=== PATIENT | female | born 1945 | race Caucasian/White ===

== ENCOUNTER → 2020-12-25 | Outpatient (CLI) | payer MEDICARE, OTHER ==
[~2020-12-25] MED LIST: ADULT MULTIVIT1 EACH PO; ALPHA LIPOIC A200 M2 PO; ASPIRIN 81M81 MG/TA2 PO; CARNITINE PO; COREG 6.256.25 MG/TA PO; GLUCOSAMINE 1000; GLUCOSAMINE/CHO1 CA4 PO; JANTOVEN2.5 MG PO; JANTOVEN5 MG PO; MAGNESIUM CITR100 MG PO; MSM1000 MG; ORIGANUM OIL 1 M1 ML; PHARMASSURE ZIN50 MG PO; PROTONIX 40MG T40 MG PO; SUPER B COMPLEX; THE MEDICINE S200 M2 PO; THERATEARS SGL PO; TURMERIC500 MG PO; VITAMIN D31000 IU PO; VITAMINC1000TA PO; ZETIA 10MG TAB10 MG PO; [UNRECOGNIZED DRUG - OTHER]
[2020-12-25 12:55] LABS: BILIRUBIN,TOTAL 0.2 mg/dL (0.0-1.0); CALCIUM 9.6 mg/dL (8.4-10.2); CREATININE, serum 0.79 (0.52-1.25); POTASSIUM 4.5 mmol/L (3.4-5.0); TOTAL PROTEIN 7.7 gm/dL (6.4-8.2)
== END ==
LOC: COL.RAD 12:05 → COL.LAB 12:05 → COL.RAD 13:30
DX: N26.1 Atrophy of kidney (terminal) (principal); I25.10 Atherosclerotic heart disease of native coronary artery without angina pectoris; G93.89 Other specified disorders of brain; E27.8 Other specified disorders of adrenal gland; C79.9 Secondary malignant neoplasm of unspecified site; D32.9 Benign neoplasm of meninges, unspecified; C78.00 Secondary malignant neoplasm of unspecified lung; Z98.890 Other specified postprocedural states
CPT/HCPCS: A9585; Q9967

== ENCOUNTER → 2021-01-29 | Outpatient (CLI) | payer MEDICARE, OTHER | LOC: COL.RAD 11:30 | DX: C78.00 Secondary malignant neoplasm of unspecified lung (principal); C79.9 Secondary malignant neoplasm of unspecified site; D35.01 Benign neoplasm of right adrenal gland; N26.1 Atrophy of kidney (terminal) | CPT/HCPCS: Q9967 ==

== ENCOUNTER 2021-03-22 12:57 | Observation (INO) | payer MEDICARE, OTHER ==
[~2021-03-22] VITALS: Ht 160 cm; Wt 84.1 kg
[2021-03-22 14:12] LABS: BASO # 0.1 (0.0-0.2); BASO % 0.4 % (0.0-2.0); EOS # 0.1 (0.0-0.7); EOS % 0.7 % (0-4.0); GRAN # 14.1 (1.4-6.5); GRAN % 84.4 % (42.2-75.2); HEMATOCRIT 36.6 % (37.0-47.0); HEMOGLOBIN 11.9 g/dl (12.5-16.0); LYMPH # 1.5 (1.2-3.4); MEAN CELL VOLUME 94 fl (80.0-100.0); MEAN CORPUSCULAR HEMOGLOBIN 31 pg (27.0-31.0); MEAN CORPUSCULAR HGB CONC 33 g/dl (33.0-37.0); MEAN PLATELET VOLUME 9.4 fl (7.4-10.4); MONO # 0.8 (0.1-0.6); MONO % 4.7 % (1.7-9.3); PLATELET COUNT 169 K/mm3 (130-400); RED BLOOD COUNT 3.88 M/mm3 (4.10-5.30); REDCELL DISTRIBUTION WIDTH-CV 14.2 % (11.5-14.5)
[2021-03-22 14:22] LABS: COLLECTION METHOD CLEAN CATCH
[2021-03-22 14:23] LABS: ALBUMIN 3.4 gm/dL (3.5-5.0); BILIRUBIN,TOTAL 0.3 mg/dL (0.0-1.0); CALCIUM 8.7 mg/dL (8.4-10.2); CREATININE, serum 0.76 (0.52-1.25); PROTHROMBIN TIME 21.9 SECONDS (9.7-12.8); TOTAL PROTEIN 6.5 gm/dL (6.4-8.2)
[2021-03-22 14:29] LABS: MUCOUS Present /lpf; PH 5 (5-8); SQUAMOUS EPITHELIAL 0-2 /hpf; URINE APPEARANCE Hazy; URINE BACTERIA None Seen /hpf; URINE BILIRUBIN Negative (NEGATIVE); URINE BLOOD 1+ (NEGATIVE); URINE COLOR Yellow; URINE GLUCOSE Negative (NEGATIVE); URINE KETONE Negative (NEGATIVE); URINE LEUKOCYTE ESTERASE Negative (NEGATIVE); URINE NITRATE Negative (NEGATIVE); URINE PROTEIN(semi-quant) Negative (NEGATIVE); URINE RBC 0-2 /hpf; URINE UROBILINOGEN Negative (NEGATIVE)
[2021-03-22 14:47] LABS: C-REACTIVE PROTEIN 0.5 mg/dL (0.0-0.9)
[2021-03-22] MEDS ORDERED: VITAMINC1000TA PO (15:40)
[2021-03-22] MEDS ORDERED: MSM1000 MG (15:41)
[2021-03-22] MEDS ORDERED: GLUCOSAMINE 1000 (15:41)
[2021-03-22] MEDS ORDERED: MAGNESIUM CITR100 MG PO (15:42)
[2021-03-22] MEDS ORDERED: ADULT MULTIVIT1 EACH PO (15:42)
[2021-03-22] MEDS ORDERED: THERATEARS SGL PO (15:43)
[2021-03-22] MEDS ORDERED: GLUCOSAMINE/CHO1 CA4 PO (15:44)
[2021-03-22] MEDS ORDERED: VITAMIN D31000 IU PO (15:44)
[2021-03-22] MEDS ORDERED: ORIGANUM OIL 1 M1 ML (15:44)
[2021-03-22] MEDS ORDERED: TURMERIC500 MG PO (15:45)
[2021-03-22] MEDS ORDERED: THE MEDICINE S200 M2 PO (15:46)
[2021-03-22] MEDS ORDERED: CARNITINE PO (15:47)
[2021-03-22] MEDS ORDERED: ALPHA LIPOIC A200 M2 PO (15:48)
[2021-03-22] MEDS ORDERED: SUPER B COMPLEX (15:48)
[2021-03-22] MEDS ORDERED: [UNRECOGNIZED DRUG - OTHER] (15:49)
[2021-03-22] MEDS ORDERED: COREG 6.256.25 MG/TA PO (15:49)
[2021-03-22] MEDS ORDERED: PHARMASSURE ZIN50 MG PO (15:49)
[2021-03-22] MEDS ORDERED: ASPIRIN 81M81 MG/TA2 PO (15:50)
[2021-03-22] MEDS ORDERED: JANTOVEN5 MG PO (15:50)
[2021-03-22] MEDS ORDERED: ZETIA 10MG TAB10 MG PO (15:51)
[2021-03-22] MEDS ORDERED: JANTOVEN2.5 MG PO (17:25)
--- NOTE | 2021-03-22 19:48 | NUR ---
PATIENT ARRIVED TO UNIT AROUND 1930 PM FROM ED. PATIENT PRESENTED WITH NAUSEA/VOMITING AND IG BLEED. PATIENT ALERRT AND ORIENTED X4. DENIES PAIN, NAUSEA OR VOMITING. ABDOMENT SOFT, +BSX4 QUADRANTS. VSS, AFEBRILE. PATIENT ORIENTED TO ROOM. CALL LIGHT WITHIN REACH, BED LOW AND LOCKED. WILL CONTINUE TO MONITOR.
[2021-03-22 20:00] VITALS: BP 122/45; PULSE 87; TEMP 99.2
[2021-03-23] VITALS (10 sets, daily range): BP systolic 108–137; BP diastolic 5–65; PULSE 74–89; TEMP 97.8–99.8
--- NOTE | 2021-03-23 07:57 | NUR ---
Received call that OR would be coming to get patient for procedure. Consent signed and pt prepped for scope. Pt denies any pain and has not had any bloody stools since arriving. Pt has used the restroom and all jewelry has been removed.
--- NOTE | 2021-03-23 09:03 | NUR ---
Pt back from EGD, she is alert and oriented with no pain complaints. She is tolerating clear liquids which recovery nurse gave her. VSS. Pt is hoping to go home today
--- NOTE | 2021-03-23 10:03 | NUR ---
Initial visit; Patient thanked Rural Electrification Engineer for looking in on him and offering God's blessings and to keep her in Rural Electrification Engineer's prayers.
--- NOTE | 2021-03-23 10:49 | NUR ---
Pt continues to do well. She is hopeful to get to go home after lunch. No pain complaints. Pt reports that she wants to shower when she gets home. VSS, will continue to monitor
[2021-03-23 13:50] LABS: MEAN CELL VOLUME 96 fl (80.0-100.0); MEAN CORPUSCULAR HGB CONC 33 g/dl (33.0-37.0); MEAN PLATELET VOLUME 9.1 fl (7.4-10.4); PLATELET COUNT 157 K/mm3 (130-400); RED BLOOD COUNT 2.93 M/mm3 (4.10-5.30); REDCELL DISTRIBUTION WIDTH-CV 14.7 % (11.5-14.5)
[2021-03-23 13:51] LABS: HEMATOCRIT 28.1 % (37.0-47.0); HEMOGLOBIN 9.2 g/dl (12.5-16.0); MEAN CORPUSCULAR HEMOGLOBIN 31 pg (27.0-31.0)
[2021-03-23 13:57] LABS: CALCIUM 8.2 mg/dL (8.4-10.2); CREATININE, serum 0.81 (0.52-1.25)
--- NOTE | 2021-03-23 14:00 | NUR ---
Pt continues to do well, no pain complaints, ,ready for discharge
[2021-03-23] MEDS ORDERED: PROTONIX 40MG T40 MG PO (14:12)
--- NOTE | 2021-03-23 15:08 | NUR ---
Reviewed discharge instructions with pt to include lab work, follow up appointment and prescription. INT removed from right wrist. pt escorted out
== END 2021-03-23 15:10 | disposition home or self-care (01) ==
LOC: COL.ER 12:57 → SURG 15:21
PROVIDERS: Family Medicine; Physician Assistant; ADMIT Student in an Organized Health Care Education/Training Program
DX: K92.0 Hematemesis (principal); K92.1 Melena; K21.00 Gastro-esophageal reflux disease with esophagitis, without bleeding; D72.829 Elevated white blood cell count, unspecified; D62 Acute posthemorrhagic anemia; E78.5 Hyperlipidemia, unspecified; I25.10 Atherosclerotic heart disease of native coronary artery without angina pectoris; I25.2 Old myocardial infarction; M19.90 Unspecified osteoarthritis, unspecified site; Z85.820 Personal history of malignant melanoma of skin; Z79.899 Other long term (current) drug therapy; Z79.01 Long term (current) use of anticoagulants; Z98.51 Tubal ligation status
CPT/HCPCS: C9113; G0378; J2405; J2704; J7030; J7120

== ENCOUNTER 2021-03-26 09:27 | Observation (INO) | payer MEDICARE, OTHER ==
[~2021-03-26] VITALS: Ht 160 cm; Wt 83.6 kg
[2021-03-26 10:51] LABS: BASO # 0.1 (0.0-0.2); BASO % 0.6 % (0.0-2.0); EOS # 0.2 (0.0-0.7); EOS % 1.9 % (0-4.0); GRAN # 8.5 (1.4-6.5); GRAN % 75.6 % (42.2-75.2); LYMPH # 1.6 (1.2-3.4); LYMPH % 13.8 % (20.0-51.0); MEAN CELL VOLUME 98 fl (80.0-100.0); MEAN CORPUSCULAR HGB CONC 32 g/dl (33.0-37.0); MEAN PLATELET VOLUME 9.2 fl (7.4-10.4); MONO # 0.8 (0.1-0.6); MONO % 7.3 % (1.7-9.3); PLATELET COUNT 216 K/mm3 (130-400); REDCELL DISTRIBUTION WIDTH-CV 14.7 % (11.5-14.5)
[2021-03-26 10:52] LABS: INR 1.1 (0.8-3.0); PROTHROMBIN TIME 11.8 SECONDS (9.7-12.8)
[2021-03-26 10:54] LABS: HEMATOCRIT 23.5 % (37.0-47.0); HEMOGLOBIN 7.5 g/dl (12.5-16.0); MEAN CORPUSCULAR HEMOGLOBIN 31 pg (27.0-31.0)
[2021-03-26 10:56] LABS: ALANINE AMINOTRANSFERASE 26 U/L (4-34); ALBUMIN 3.3 gm/dL (3.5-5.0); ALKALINE PHOSPHATASE 60 U/L (50-136); ANION GAP 3 mmol/L (7-16); AST,SGOT 37 U/L (15-37); BILIRUBIN,TOTAL 0.3 mg/dL (0.0-1.0); BLOOD UREA NITROGEN 24 mg/dL (7-17); CALCIUM 8.9 mg/dL (8.4-10.2); CARBON DIOXIDE 25 mmol/L (22-30); CHLORIDE 111 mmol/L (98-107); CREATININE, serum 0.88 (0.52-1.25); GLUCOSE 127 mg/dL (74-106); SODIUM 139 mmol/L (137-145)
[2021-03-26 10:57] LABS: C-REACTIVE PROTEIN < 0.5 mg/dL (0.0-0.9)
[2021-03-26 12:31] VITALS: BP 144/49; PULSE 79; TEMP 98.1
--- NOTE | 2021-03-26 12:31 | NUR ---
arrived on unit from ED per WC, assisted out of WC and into bed, denies needs at this time
--- NOTE | 2021-03-26 13:00 | NUR ---
resting in bed texting with family on phone, full assessment completed, see interventions for further info
--- NOTE | 2021-03-26 14:43 | NUR ---
Dr Harvey in to see gildardo, IV fluids started, assisted up to bathroom, will wait to hear from Dr Celestin before providing anything to eat or drink
--- NOTE | 2021-03-26 15:31 | NUR ---
provided ice water to patient and informed could have clear liquids until midnight and then NPO
[2021-03-26 15:47] VITALS: BP 130/40; PULSE 78; TEMP 98
[2021-03-26 16:50] LABS: HEMATOCRIT 22.3 % (37.0-47.0); HEMOGLOBIN 7.1 g/dl (12.5-16.0)
--- NOTE | 2021-03-26 18:50 | NUR ---
has been up to bathroom and bedside commode and is having bloody stools, also c/o some nausea and some dry heaves, assisted up to bedside commode and was incontinent of bloody stool, will sit on commode and call when she is finished, bedside shift report given to AUDRA Watts
[2021-03-26 19:44] VITALS: BP 143/55; PULSE 76; TEMP 97.8
--- NOTE | 2021-03-26 20:58 | NUR ---
PATIENT ALERT AND ORIENTEDX4. STARTING ON [facility] FOR EGD AND COLONOSCOPY TOMORROW. HAVING LIQUIS STOOL, WITH SOME NAUSEA. USING COMMODE AT BEDSIDE. DENIES PAIN. WILL BE NPO AT MIDNIGHT. ON IVF NS@ 100ML/HR. CALL LIGHT WITHIN REACH. WILL CONTINUE TO MONITOR.
[2021-03-26 22:54] VITALS: BP 122/50; PULSE 78; TEMP 97.8
[2021-03-26 23:54] VITALS: BP 125/56; PULSE 73; TEMP 98.7
[2021-03-27] VITALS (11 sets, daily range): BP systolic 113–138; BP diastolic 36–70; PULSE 63–76; TEMP 97.8–98.3
--- NOTE | 2021-03-27 00:51 | NUR ---
TWO ASSET PROTECTION REPRESENTATIVE TRY AND UNABLE TO DRAWN PATIENT LABS FOR H&H. HOSPITOLIST TANNER MCCALL MADE AWARE. PLAN FOR PICC IN THE MORNING. WILL CONTINUE TO MONITOR.
[2021-03-27 07:36] LABS: BASO % 0.4 % (0.0-2.0); EOS # 0.2 (0.0-0.7); EOS % 2.6 % (0-4.0); GRAN # 6.3 (1.4-6.5); GRAN % 69.4 % (42.2-75.2); LYMPH # 1.7 (1.2-3.4); LYMPH % 19.1 % (20.0-51.0); MEAN CELL VOLUME 100 fl (80.0-100.0); MEAN CORPUSCULAR HGB CONC 32 g/dl (33.0-37.0); MEAN PLATELET VOLUME 9.8 fl (7.4-10.4); MONO # 0.7 (0.1-0.6); MONO % 7.9 % (1.7-9.3); RED BLOOD COUNT 2.16 M/mm3 (4.10-5.30); REDCELL DISTRIBUTION WIDTH-CV 15.4 % (11.5-14.5)
--- NOTE | 2021-03-27 07:49 | NUR ---
Patient laying in bed. A&O. Denies pain and reports discomfort r/t arthritis. VSS. IV CDI, fluids infusing. Patient NPO for a procedure. No further needs expressed from the patient. Call light within reach
[2021-03-27 07:54] LABS: CALCIUM 8.2 mg/dL (8.4-10.2); CREATININE, serum 0.71 (0.52-1.25); POTASSIUM 3.7 mmol/L (3.4-5.0)
[2021-03-27 08:06] LABS: HEMATOCRIT 21.5 % (37.0-47.0); MEAN CORPUSCULAR HEMOGLOBIN 31 pg (27.0-31.0)
[2021-03-27 08:07] LABS: PLATELET COUNT 114 K/mm3 (130-400)
[2021-03-27 08:10] LABS: HEMOGLOBIN 6.8 g/dl (12.5-16.0)
--- NOTE | 2021-03-27 08:54 | NUR ---
Contamination Consultant met with the patient to complete intake. The patient lives in [place] with her , Samy. The patient has toilet seat bars and shower safety bars. The patient is independent. The patient's PCP is Dr. Terrell and the patient receives medications from [facility] [place]. The patient does not have advanced directives in the EMR but states they are complete and designate her daughter, Minal Page for [place] #[phone]. The patient plans to return home with Samy at discharge. *Discharge disposition: Home with spouse*
--- NOTE | 2021-03-27 11:57 | NUR ---
First visit from the reactor technician. No needs right now.
--- NOTE | 2021-03-27 13:15 | NUR ---
Patient to room 323 from a procedure. A&Ox4. Ambulated with standby assist to the bed. Denies pain and discomfort. Drowsy, just wants to rest. IV CDI, fluids by gravity. Call light within reach. VS monitored
--- NOTE | 2021-03-27 13:50 | NUR ---
Blood transfusion started. VS monitored, WNL. A&Ox4, drowsy. IV CDI. Denies pain and discomfort. No further needs expressed from the patient.
--- NOTE | 2021-03-27 16:14 | NUR ---
Transfusion complete. Patient tolerated well. VSS. IV CDI. Denies pain and discomfort. No further needs expressed from the patient. Call light within reach
--- NOTE | 2021-03-27 17:53 | NUR ---
Patient laying in bed, at the bedside. Patient tolerated blood transfusion of 1 unit. VSS. IV CDI. Denies pain and discomfort. Patient tolerating mechanical soft diet. No further needs expressed from the patient. Call light within reach
[2021-03-27 18:40] LABS: HEMATOCRIT 27.6 % (37.0-47.0); HEMOGLOBIN 8.9 g/dl (12.5-16.0)
[2021-03-28 00:26] VITALS: BP 128/44; PULSE 77; TEMP 98.4
[2021-03-28 03:38] VITALS: BP 143/56; PULSE 75; TEMP 97.7
--- NOTE | 2021-03-28 04:49 | NUR ---
PATIENT HAD AN UNEVENTFUL NIGHT. NO C/O OF DISCOMFORT. NO NAUSEA/VOMITING. TOLERATING MECHANICAL SOFT DIET. VSS. INDEPENDENT IN [place]. PLAN FOR POSSIBLE D/C TODAY. WILL CONTINUE TO MONITOR.
[2021-03-28 07:49] VITALS: BP 140/52; PULSE 75; TEMP 97.8
--- NOTE | 2021-03-28 08:56 | NUR ---
PT RESTING IN BED. VERY ANXIOUS. DAUGHTER AT BEDSIDE. PT REPORTS NO HOT WATER. CHECKED AND FOUND WARMED H2O.
[2021-03-28 09:17] LABS: BASO % 0.5 % (0.0-2.0); EOS # 0.3 (0.0-0.7); GRAN # 5.1 (1.4-6.5); GRAN % 64.8 % (42.2-75.2); LYMPH # 1.7 (1.2-3.4); LYMPH % 21.7 % (20.0-51.0); MEAN CELL VOLUME 97 fl (80.0-100.0); MEAN CORPUSCULAR HGB CONC 32 g/dl (33.0-37.0); MEAN PLATELET VOLUME 10.2 fl (7.4-10.4); MONO # 0.7 (0.1-0.6); MONO % 8.4 % (1.7-9.3); PLATELET COUNT 186 K/mm3 (130-400); RED BLOOD COUNT 2.56 M/mm3 (4.10-5.30); REDCELL DISTRIBUTION WIDTH-CV 18.6 % (11.5-14.5)
[2021-03-28 09:19] LABS: HEMATOCRIT 24.9 % (37.0-47.0); MEAN CORPUSCULAR HEMOGLOBIN 31 pg (27.0-31.0)
[2021-03-28 11:54] VITALS: BP 116/43; BP 127/47; PULSE 73; PULSE 74; TEMP 97.5
--- NOTE | 2021-03-28 14:05 | NUR ---
DISCHARGE INSTRUCTIONS REVIEWED WITH PT AND , QUESTIONS SOLICITED AND ANSWERED. PT LEFT UNIT PER WHEEL CHAIR IN GOOD CONDITION.
== END 2021-03-28 14:07 | disposition home or self-care (01) ==
LOC: COL.ER 09:27 → SURG 11:11 → COL.ER 11:57 → SURG 03-28 14:07
PROVIDERS: Emergency Medicine; Physician Assistant; ADMIT Internal Medicine
DX: K92.1 Melena (principal); D50.0 Iron deficiency anemia secondary to blood loss (chronic); K57.30 Diverticulosis of large intestine without perforation or abscess without bleeding; K21.00 Gastro-esophageal reflux disease with esophagitis, without bleeding; R42 Dizziness and giddiness; D72.829 Elevated white blood cell count, unspecified; I25.10 Atherosclerotic heart disease of native coronary artery without angina pectoris; I10 Essential (primary) hypertension; Z20.822 Contact with and (suspected) exposure to COVID-19; E78.5 Hyperlipidemia, unspecified; Z86.711 Personal history of pulmonary embolism; Z79.01 Long term (current) use of anticoagulants; Z79.1 Long term (current) use of non-steroidal anti-inflammatories (NSAID); Z95.818 Presence of other cardiac implants and grafts; Z79.899 Other long term (current) drug therapy; Z85.118 Personal history of other malignant neoplasm of bronchus and lung; Z85.841 Personal history of malignant neoplasm of brain
CPT/HCPCS: 99232-AI; C1751; C9113; G0378; J2704; J7030; P9016

== ENCOUNTER → 2021-04-19 | Outpatient (CLI) | payer MEDICARE, OTHER ==
[2021-04-19 09:17] LABS: CALCIUM 9.2 mg/dL (8.4-10.2); CREATININE, serum 0.82 (0.52-1.25); POTASSIUM 4.5 mmol/L (3.4-5.0)
[2021-04-23 11:59] LABS: RENIN,PLASMA <0.6 ng/mL/h (())
[2021-04-28 06:07] LABS: CORTISOL FREE - SERUM <0.030 mcg/dL (())
== END ==
LOC: COL.LAB 07:40
DX: E27.8 Other specified disorders of adrenal gland (principal)

== ENCOUNTER → 2021-08-13 | Outpatient (CLI) | payer MEDICARE, OTHER | LOC: COL.RAD 09:58 | DX: C79.9 Secondary malignant neoplasm of unspecified site (principal); G93.9 Disorder of brain, unspecified | CPT/HCPCS: A9585; Q9967 ==

== ENCOUNTER → 2022-07-03 | Outpatient (CLI) | payer MEDICARE, OTHER | LOC: COL.RAD 11:12 | DX: C43.39 Malignant melanoma of other parts of face (principal); C78.00 Secondary malignant neoplasm of unspecified lung; N26.1 Atrophy of kidney (terminal); D25.9 Leiomyoma of uterus, unspecified; N85.4 Malposition of uterus; K57.90 Diverticulosis of intestine, part unspecified, without perforation or abscess without bleeding | CPT/HCPCS: Q9967 ==

== ENCOUNTER → 2023-10-13 | Outpatient (CLI) | payer MEDICARE, OTHER ==
[~2023-10-13] MED LIST changes: +ELIQUIS 5MG PO; +XARELTO15 MG PO
== END ==
LOC: COL.RAD 13:03
DX: D32.9 Benign neoplasm of meninges, unspecified (principal)
CPT/HCPCS: A9575; Q9967

== ENCOUNTER → 2024-01-12 | Outpatient (CLI) | payer MEDICARE, OTHER | LOC: COL.RAD 09:13 | DX: I82.412 Acute embolism and thrombosis of left femoral vein (principal); I82.432 Acute embolism and thrombosis of left popliteal vein ==